=== PATIENT | male | born 2005 | race Caucasian/White ===

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

== ENCOUNTER 2024-08-04 08:22 | Emergency (ER) | payer OTHER, SELFPAY ==
[2024-08-04 08:23] VITALS: BP 140/79
--- NOTE | 2024-08-04 09:09 | ED.GENMED ---
History of Present Illness
General
Chief Complaint: Throat Problem
Source: patient and family
Time Seen by Provider: 08/04/24 08:58
History of Present Illness
History of Present Illness:
19-year-old male with past medical history of asthma, anxiety and depression presenting to the emergency department for evaluation after waking up on Friday with a sore throat, went to urgent care and was started on amoxicillin for suspected strep
throat despite a negative rapid test, symptoms worsened yesterday and went to primary care provider who prescribed the patient Augmentin but still with no relief today and worsening sore throat, edema of the tonsils, sinus congestion and
blood-tinged sputum. Patient has been taking Motrin and Tylenol so is not sure about fevers. Denies any abdominal pain, nausea, vomiting, chest pain or shortness of breath. Does admit to diminished p.o. intake to both solids and liquids. No
known sick contacts, recent travel or other antibiotics other than what was prescribed since Friday.
Past History
Past History
ED Past Medical History: Psychiatric and Other (Pneumonia, reactive airway disease)
ED Past Surgical History: None
Social History
Tobacco: Non-smoker
Alcohol: Occasional
Drug: None
Personal: Single
Living: with roommate
Employment: Student
Review of Systems
Review of Systems
All Other Systems: ROS reviewed and negative except as documented in HPI and ROS
Phy Exam
Physical Exam
Physical Exam:
GENERAL: Alert , in no apparent distress
HEAD: NCAT
EYE: conjunctiva clear
NECK: Supple, cervical chain lymphadenopathy
ENT: 2+ tonsillar edema/erythema with exudates, uvula midline, tolerating secretions, no trismus or stridor, patient does have hot potato voice, TM clear bilateral
CARDIAC: Tachycardic rate and rhythm, no murmur
LUNGS: Clear breath sounds bilaterally, no acute respiratory distress, no wheezes/rales/rhonchi
NEUROLOGICAL: Alert and oriented
SKIN: Warm and dry, skin intact.
MUSCULOSKELETAL: well perfused.
PSYCH: Normal and appropriate interaction.
Scores
Heart Failure Risk
Heart Failure Risk Score: Not Applicable
Heart Score for Chest Pain Patients
STEMI patient?: Not applicable
Withdrawal Assessment of Alcohol
Withdrawal Assessment Completed?: Not applicable
Course
Orders/Labs/Results
Orders:
Orders
08/04/24 09:08
0.9% Sodium Chloride 1000 ml [Nss] 1,000 ml IV BOLUS
Benzocaine/Menthol [Anesthetic Lozenge] 1 lozenge PO NOW STA
Dexamethasone Sod Phosphate [Decadron] 10 mg IV NOW STA
Ketorolac [Toradol] 30 mg IV NOW STA
08/04/24 09:28
Dexamethasone Sod Phosphate [Decadron] 20 mg .ROUTE .STK-MED ONE
08/04/24 09:41
Complete Blood Count/With Diff Urgent
Comprehensive Metabolic Panel Urgent
Monotest Urgent
08/04/24 10:48
Viscous Lidocaine 2% [Xylocaine Viscous Cup] 15 ml PO NOW STA
Abnormal Lab Results
08/04/24
09:41
WBC 15.7 H 10^3/uL
(4.8-10.8)
RBC 4.41 L 10^6/uL
(4.70-6.10)
MCH 31.1 H pg
(27.0-31.0)
Abs Immat Gran (auto) 0.1 H 10^3/uL
(0-0.05)
Absolute Neuts (auto) 8.1 H 10^3/uL
(1.4-6.5)
Absolute Lymphs (auto) 6.1 H 10^3/uL
(1.2-3.4)
Absolute Monos (auto) 1.3 H 10^3/uL
(0.1-0.6)
Glucose 123 H mg/dl
(70-99)
ALT 178 H U/L
(0-50)
Alkaline Phosphatase 153 H U/L
(38-126)
Monoscreen Positive A
(Negative)
08/04/24 09:41
08/04/24 09:41
Vital Signs
Initial and Last Documented VS:
Initial Vital Signs
Temp Pulse Resp BP Pulse Ox
98.5 F 134 18 140/79 98
08/04/24 08:23 08/04/24 08:23 08/04/24 08:23 08/04/24 08:23 08/04/24 08:23
Last Documented Vital Signs
Temp Pulse Resp BP Pulse Ox
98.5 F 108 18 134/67 97
08/04/24 08:23 08/04/24 10:00 08/04/24 08:23 08/04/24 11:00 08/04/24 11:11
MDM/Problems Addressed
Differential Diagnosis Includes:
Bailey, less concern for strep given the 2 negative rapid tests, peritonsillar abscess/retropharyngeal abscess, sinusitis
MDM/Problems Addressed:
19-year-old male presenting to the ER for evaluation of 3 days now of sore throat, worsening tonsillar edema, body aches, diminished p.o. intake. Patient is been on 1 day of amoxicillin, switch to Augmentin yesterday, no relief. Exam seems to be
most consistent with mono or other viral etiology however considering peritonsillar abscess/retropharyngeal abscess is possibility as well will check labs. For symptomatic relief Decadron, Toradol and Cepacol lozenge are ordered. Reassessment
following
*Pulse Oximetry
Patient hypoxic: no
*Critical Care Note
Total Time (30-74mins, 75-104mins- exclusive of procedures): Not Applicable
Patient Management
Escalation/DeEscalation of care consider admission/obs:
Patient's workup is consistent with mononucleosis and tested positive for mono as well. Discussed management of this with patient and mother. Stable for discharge home. Aware of return precautions. Will follow-up with the primary care provider
ED Attending Note
-
Portions of this chart may have been created with voice recognition software.� Occasional wrong word or��sound alike� substitutions may have occurred due to the inherent limitations of voice recognition software.
Discharge Plan
Departure
Patient Disposition: Home (Routine Discharge)
Date of Disposition: 08/04/24
Time of Disposition: 11:11
Patient with high blood pressure during this ER visit?: No
Discharge Problem:
Mononucleosis
Instructions: Mononucleosis (DC)
Prescriptions:
New
methylprednisolone [Medrol (Gerry)] 4 mg tablets,dose pack
4 mg PO DIRECTED Qty: 21 0RF
lidocaine HCl 2 % solution
15 ml mucous membrane TID PRN (Reason: Pain) Qty: 250 0RF
No Action
sulfamethoxazole-trimethoprim 1 TABLET tablet
1 tab PO BID Qty: 14 0RF
acetaminophen-codeine 1 TABLET tablet
1 - 2 tab PO Q4HPRN PRN (Reason: pain) Qty: 30 0RF
amoxicillin-pot clavulanate 875-125 mg tablet
1 tab PO BID Qty: 20 0RF
Referrals:
Jorge Lima MD [Family Provider] -
Stand Alone Forms: Back to School
Interventions
Interventions:
*Risk Screen - Suicide Last Done: 08/04/24 08:26
*General Assessment Last Done: 08/04/24 08:26
*Neglect/Abuse Screening Last Done: 08/04/24 08:26
*ED COVID-19 Vaccine History Last Done: 08/04/24 09:42
*Nursing Disposition Last Done: 08/04/24 11:29
ED-EENT Assessment Last Done: 08/04/24 11:11
ED- Pulmonary Assessment Last Done: 08/04/24 11:11
Discharge Date and Time
Discharge Date/Time: 08/04/24 11:30
Print Language: ARMENIAN
[2024-08-04] MEDS: NSS 1000 IV (09:35)
[2024-08-04] MEDS: DECADRON 10 MG IV (09:36)
[2024-08-04] MEDS: TORADOL 30 MG IV (09:37)
[2024-08-04] MEDS: ANESTHETIC LOZENGE 1 LOZENGE PO (09:37)
[2024-08-04 09:41] VITALS: BMI 27.9
[2024-08-04 09:59] LABS: Hemoglobin 13.7 g/dL (13.0-18.0); Mean Corp Hgb Conc. 35.1 g/dL (33.0-37.0); Mean Corpuscular Hgb 31.1 pg (27.0-31.0); Mean Corpuscular Volume 88.4 fL (80.0-94.0); Mean Platelet Volume 9.4 fL (7.4-10.4); Platelet Count 173 10^3/uL (130-400); Red Cell Dist. Width 13.2 % (11.5-14.5)
[2024-08-04 10:00] VITALS: BP 128/64
[2024-08-04 10:07] LABS: ALT (SGPT) 178 U/L (0-50); AST (SGOT) 51 U/L (17-59); Albumin 4.7 g/dl (3.5-5.0); Alkaline Phosphatase 153 U/L (38-126); Blood Urea Nitrogen 11 mg/dl (9-20); Calcium 9.1 mg/dl (8.4-10.2); Carbon Dioxide 25 mmol/L (22-30); Chloride 98 mmol/L (98-107); Estimated Creatinine Clearance > 125 ml/min; Glucose 123 mg/dl (70-99); Potassium 4.1 mmol/L (3.5-5.1); Sodium 138 mmol/L (135-145); Total Bilirubin 1.2 mg/dl (0.2-1.3); Total Protein 7.8 g/dl (6.3-8.2); eGFR > 60.00
[2024-08-04 10:20] VITALS: BP 128/64
[2024-08-04 10:20] LABS: Red Blood Cell Count 4.41 10^6/uL (4.70-6.10); White Blood Cell Count 15.7 10^3/uL (4.8-10.8)
[2024-08-04 10:53] LABS: Monotest Positive (Negative)
[2024-08-04] MEDS: XYLOCAINE VISCOUS CUP 15 ML PO (10:56)
[2024-08-04 11:00] VITALS: BP 134/67
[2024-08-04 11:15] LABS: % Basophils 0.5 % (0-2); % Eosinophils 0.3 % (0-6); % Immature Granulocytes 0.4 % (0-0.5); % Lymphocytes 38.6 % (20.5-51.1); % Monocytes 8.5 % (1.7-9.3); % Neutrophils 51.7 % (42.2-75.2); Absolute Basophils 0.1 10^3/uL (0-0.2); Absolute Immature Granulocytes 0.1 10^3/uL (0-0.05); Absolute Lymphocytes 6.1 10^3/uL (1.2-3.4); Absolute Monocytes 1.3 10^3/uL (0.1-0.6); Absolute Neutrophils 8.1 10^3/uL (1.4-6.5); Nucleated Red Blood Cells % 0 % (-)
== END 2024-08-04 11:30 | disposition home or self-care (01) ==
LOC: EMR 08:22
PROVIDERS: Physician Assistant Medical; EMERGENCY PHYSICIAN Student in an Organized Health Care Education/Training Program; FAMILY PHYSICIAN Family Medicine
DX: B27.90 Infectious mononucleosis, unspecified without complication (principal); J45.909 Unspecified asthma, uncomplicated
CPT/HCPCS: 96374; 96375; 99284; 80053; 85025; 86308